=== PATIENT | male | born 1985 | race Caucasian/White ===

== ENCOUNTER 2023-10-19 21:04 | Emergency (ER) | payer OTHER, SELFPAY ==
[2023-10-19 21:05] VITALS: BP 147/85; PULSE 79; RESP 18; TEMP 36.6; O2SAT 100
--- NOTE | 2023-10-19 22:51 | ED.DENTAL ---
HPI - Dental/Oral General Chief complaint: Dental/Oral Stated complaint: dental pain post op oral sx Time Seen by Provider: 10/19/23 21:53 Source: patient Mode of arrival: ambulatory Limitations: no limitations History of Present Illness HPI Narrative: Patient is a 38-year-old male who presents the ED with report of left lower dental pain, tooth number 19. Patient reports he has been dealing with root issues with this tooth as well as a recently broken crown. He has undergone root canal and had to have further surgery on his root last with his dentist. He has been dealing with pain intermittently since then, but states pain became significantly worse yesterday and today. He contacted his dentist and was told she could prescribe pain medication tomorrow when the pharmacies are open. Patient has been taking Tylenol and ibuprofen at home today but is unable to find any relief. Difficulty sleeping due to the pain. Denies gum inflammation/drainage. Denies difficulty breathing or swallowing. Denies fevers. Related Data Allergies Allergy/AdvReac Type Severity Reaction Status Date / Time No Known Allergies Allergy Unknown Verified 10/16/07 16:15 Review of Systems Review of Systems: CONSTITUTIONAL: Denies fever, chills, or sweats. ENT: See HPI. RESPIRATORY: Denies cough or dyspnea. All systems reviewed & are unremarkable except as noted in HPI and below PMFSH Family History Family History Other Diabetes mellitus Social History Social History Smoking status: Never smoker Alcohol intake: current Exam Narrative: GENERAL: Well appearing, Obese with BMI of 34.5, non-toxic, in no acute distress. HEAD: Normocephalic, atraumatic. ENT: Fractured crown tooth #19, tenderness to inner and outer gum line surrounding tooth. No significant gum inflammation or erythema noted. No evidence of focal abscess. No trismus, stridor. RESPIRATORY: Airway patent, respirations nonlabored. CARDIOVASCULAR: Regular rate and rhythm. MUSCULOSKELETAL: Moves all extremities. No gross deformities. SKIN: Warm, dry, normal color. NEURO: A&O X3. Speech clear. Cranial nerves II-XII grossly intact. Steady gait. No ataxic movements. PSYCHIATRIC: Appropriate mood and affect. Normal interaction. Course Vital Signs Vital signs: Vital Signs Temperature 97.9 F 10/19/23 21:05 Pulse Rate 79 10/19/23 21:05 Respiratory Rate 18 10/19/23 21:05 Blood Pressure 147/85 H 10/19/23 21:05 Pulse Oximetry 100 10/19/23 21:05 Oxygen Delivery Room Air 10/19/23 21:05 Temperature 98.5 F 10/19/23 22:59 Pulse Rate 77 10/19/23 22:59 Respiratory Rate 18 10/19/23 22:59 Blood Pressure 138/76 10/19/23 22:59 Pulse Oximetry 99 10/19/23 22:59 Oxygen Delivery Room Air 10/19/23 21:05 MDM - Dental/Oral MDM Narrative Medical decision making narrative: Patient's pain is consistent with dental caries /Dental fracture. There are no focal signs of space-occupying abscess. The patient is controlling secretions well without signs of airway compromise. Patient is felt reasonable for outpatient follow-up with dental evaluation. Patient will have close follow-up with his dentist this week. Will prescribe a few pain pills to provide relief until he can be seen further by dentist. No evidence of gum infection/inflammation/ abscess/fevers at this time to suggest need for antibiotics. Patient given strict return precautions. He is in agreement this plan. D/C in stable condition. Medical Records Attestation: I reviewed the patient's medical records. Discharge Plan Discharge Clinical Impression: Toothache, Fracture of tooth Patient Disposition: Home, Self-Care Condition: Stable Instructions: Antibiotic Form, Acute Dental Trauma (ED), Toothache (ED) Additional Instructions: Continue
[2023-10-19] MEDS: oxyCODONE HCL (*CRX) 5 MG TAB IR PO (22:56)
[2023-10-19 22:59] VITALS: BP 138/76; PULSE 77; RESP 18; TEMP 36.9; O2SAT 99
== END 2023-10-19 23:00 | disposition home or self-care (01) ==
PROVIDERS: Emergency Provider Physician Assistant
DX: K08.89 Other specified disorders of teeth and supporting structures (principal); S02.5XXA Fracture of tooth (traumatic), initial encounter for closed fracture; X58.XXXA Exposure to other specified factors, initial encounter
CPT/HCPCS: 99283; A9270